=== PATIENT | female | born 1950 | race Caucasian/White ===

== ENCOUNTER 2024-03-05 21:27 | Inpatient (IN) | payer MEDICARE, BC ==
[~2024-03-05] VITALS: Ht 165.1 cm; Wt 43.5 kg
[2024-03-05 22:44] VITALS: BP 139/82; TEMP 98; O2SAT 98
[2024-03-05] MEDS ORDERED: GABA600T12 PO (22:55)
[2024-03-05] MEDS ORDERED: ONDA4TAB5 PO (22:56)
[2024-03-05] MEDS: LORAZEPAM 0.5 MG TABLET PO PRN (22:56)
[2024-03-05] MEDS ORDERED: LORA-259 PO (22:57)
[2024-03-05 22:58] VITALS: BP 139/82; TEMP 98; O2SAT 98
[2024-03-05] MEDS ORDERED: PROG100C15 PO (22:58)
[2024-03-05] MEDS: BLOOD SUGAR DIAGNOSTIC 1 EACH STRIP IN ONE (22:58)
[2024-03-05] MEDS ORDERED: PANT20TA2 PO (22:59)
[2024-03-05] MEDS ORDERED: ATOR10TA PO (22:59)
[2024-03-05] MEDS ORDERED: MAGNESIUM HYDROXIDE 30 ML UDC PO PRN (23:00)
[2024-03-05] MEDS ORDERED: ACETAMINOPHEN 325 MG TABLET PO PRN (23:00)
[2024-03-05] MEDS ORDERED: SUMA100T PO (23:01)
[2024-03-05] MEDS ORDERED: ESTR-141 TD (23:04)
[2024-03-05] MEDS ORDERED: RIZA10TA27 PO (23:06)
[2024-03-06] MEDS: MAG HYDROX/AL HYDROX/SIMETH 30 ML UDC PO PRN (05:09)
[2024-03-06] MEDS ORDERED: SUMATRIPTAN SUCCINATE 100 MG TABLET PO PRN (05:30)
[2024-03-06 07:31] LABS: BASOPHILS % (AUTO) 0.6 % (0.0-2.0); EOSINOPHILS # (AUTO) 0.3 K/uL (0.0-0.7); EOSINOPHILS % (AUTO) 3.5 % (0.0-6.0); HEMATOCRIT 33 % (33-45); HEMOGLOBIN 11.4 g/dL (11.5-14.8); LYMPHOCYTES # (AUTO) 1.3 K/uL (0.8-4.8); LYMPHOCYTES % (AUTO) 17.7 % (20.0-44.0); MEAN CORPUSCULAR HEMOGLOBIN 32 PG (26.0-33.0); MEAN CORPUSCULAR HGB CONC 34 g/dl (31.0-36.0); MEAN CORPUSCULAR VOLUME 94 fL (82-100); MONOCYTES # (AUTO) 0.5 K/uL (0.1-1.30); MONOCYTES % (AUTO) 6.8 % (2.0-12.0); NEUTROPHILS # (AUTO) 5.1 K/uL (1.8-8.9); NEUTROPHILS % (AUTO) 71.4 % (43.0-81.0); PLATELET COUNT (AUTO) 287 K/uL (150-450); RED BLOOD CELL COUNT(AUTO) 3.54 MIL/uL (4.0-5.2); RED CELL DISTRIBUTION WIDTH 13.2 % (11.5-15.0); WHITE BLOOD COUNT (AUTO) 7.1 K/uL (4.3-11.0)
[2024-03-06 08:00] VITALS: BP 156/100; TEMP 98; O2SAT 98
[2024-03-06] MEDS: ENSURE ENLIVE CHOC 237 ML CAN PO SCH (08:03)
[2024-03-06] MEDS: GABAPENTIN 300 MG CAPSULE PO SCH ×2 (08:03→17:18)
[2024-03-06] MEDS: PANTOPRAZOLE 40 MG TABLET.DR PO SCH (08:03)
[2024-03-06 08:04] LABS: CALCIUM, SERUM 8.8 mg/dL (8.5-10.1); CREATININE 0.7 mg/dL (0.6-1.3)
[2024-03-06] MEDS ORDERED: TRAV2.5D7 EACHEYE (08:42)
[2024-03-06] MEDS ORDERED: SUMA6PEN9 SQ (08:42)
[2024-03-06] MEDS: POTASSIUM CHLORIDE 20 MEQ TAB.PRT.SR PO ONE (12:14)
[2024-03-06] MEDS ORDERED: LORAZEPAM 0.5 MG TABLET PO PRN (13:30)
[2024-03-06] MEDS: ESCITALOPRAM OXALATE (10 MG) 10 MG TABLET PO SCH (14:24)
[2024-03-06 16:00] VITALS: BP 150/84; TEMP 97.5; O2SAT 98
[2024-03-06] MEDS: LORAZEPAM 0.5 MG TABLET PO SCH (21:00)
[2024-03-06] MEDS: ATORVASTATIN 10 MG TABLET PO SCH (21:05)
[2024-03-07 08:00] VITALS: BP 146/98; TEMP 97.6; O2SAT 98
[2024-03-07 16:00] VITALS: BP 119/82; TEMP 98.6; O2SAT 100
[2024-03-08 08:00] VITALS: BP 98/159; TEMP 98.1
[2024-03-08 16:00] VITALS: BP 141/99; TEMP 98; O2SAT 98
[2024-03-08 20:48] VITALS: BP 162/92; TEMP 98; O2SAT 99
[2024-03-08 21:30] VITALS: BP 135/80; TEMP 97.3; O2SAT 97
[2024-03-09] MEDS: TEMAZEPAM 7.5 MG CAPSULE PO PRN (01:28)
[2024-03-09 08:00] VITALS: BP 145/84; TEMP 97.9; O2SAT 100
== END 2024-03-09 14:35 | disposition home or self-care (01) | DRG 885 ==
LOC: GPS 21:59
PROVIDERS: ADMIT Psychiatry & Neurology Psychosomatic Medicine; ATTEND Internal Medicine
DX: F39 Unspecified mood [affective] disorder (principal); R45.851 Suicidal ideations; F29 Unspecified psychosis not due to a substance or known physiological condition; F41.0 Panic disorder [episodic paroxysmal anxiety]; G43.909 Migraine, unspecified, not intractable, without status migrainosus; Z88.0 Allergy status to penicillin; G62.9 Polyneuropathy, unspecified; Z79.899 Other long term (current) drug therapy; F32.9 Major depressive disorder, single episode, unspecified; F41.1 Generalized anxiety disorder; F12.10 Cannabis abuse, uncomplicated; Z73.6 Limitation of activities due to disability; M62.81 Muscle weakness (generalized)
CPT/HCPCS: 36415; 80048-TC; 80061-TC; 85025-TC; 87081-TC; 97110-TC; 97116-TC; 97530-TC